=== PATIENT | male | born 1965 | race Caucasian/White ===

== ENCOUNTER 2022-04-06 08:57 | Outpatient (CLI) | payer BC, SELFPAY ==
--- NOTE | ~2022-04-06 | US_ITS ---
EXAMINATION: US venous doppler [facility] DATE: 04/06/2022 09:42 INDICATION: Left lower limb pain TECHNIQUE: Mao scale images without and with compression and Doppler images of the left lower extrem ity veins were obtained. COMPARISON: None FINDINGS: The left common femoral vein, profunda femoral vein, femoral vein, popliteal vein, peroneal trunk, posterior tibial veins, and greater saphenous vein are patent. There is superficial thrombosi s of the lesser saphenous vein. IMPRESSION: 1. No evidence of deep venous thrombosis. Superficial thrombosis of the lesser saphenous vein. Reviewed, dictated and finalized at location A.
== END 2022-04-06 08:58 | disposition home or self-care (01) ==
LOC: ANHIMG 09:06
PROVIDERS: PCP Family Medicine; Visit Provider Internal Medicine Cardiovascular Disease
DX: M79.662 Pain in left lower leg (principal); I82.812 Embolism and thrombosis of superficial veins of left lower extremity
CPT/HCPCS: 93971